=== PATIENT | male | born 1955 | race Caucasian/White ===

== ENCOUNTER 2021-03-10 19:32 | Emergency (ER) | payer OTHER ==
[~2021-03-10 19:32] MED LIST: LEVAQUIN500 MG PO; MOBIC15 MG PO; ZOFRAN ODT 4 MG4 MG SL
[2021-03-10] MEDS ORDERED: MOBIC7.5 MG PO (22:23)
[2021-03-10] MEDS ORDERED: LIDOCAINE PAIN1 EACH TP (22:23)
== END 2021-03-10 22:20 | disposition home or self-care (01) ==
LOC: ER1 19:32
DX: S86.811A Strain of other muscle(s) and tendon(s) at lower leg level, right leg, initial encounter (principal); Z88.0 Allergy status to penicillin; W01.0XXA Fall on same level from slipping, tripping and stumbling without subsequent striking against object, initial encounter
CPT/HCPCS: 73552; 73562; 73590; 99283